=== PATIENT | male | born 1960 | race Caucasian/White ===

== ENCOUNTER 2021-09-26 00:52 | Inpatient (IN) | payer MEDICAID ==
[~2021-09-26] VITALS: Ht 170.2 cm; Wt 76.2 kg
--- NOTE | 2021-09-26 00:52 | NUR ---
from home for ble pain d/c [facility] 9dys ago for ble cellulitis, pt aaox4, denies sob, denies cp. nad noted. pending er provider ximena
[2021-09-26] MEDS ORDERED: VANCOMYCIN 1 GM in IV D5W 250 ML IV ONE (01:30)
[2021-09-26 01:42] LABS: BASOPHILS % (AUTO) 0.3 % (0.0-2.0); HEMATOCRIT 38 % (39-51); HEMOGLOBIN 12.3 g/dL (13.5-17.5); LYMPHOCYTES # (AUTO) 0.8 K/uL (0.8-4.8); LYMPHOCYTES % (AUTO) 8.6 % (20.0-44.0); MEAN CORPUSCULAR HGB CONC 32 g/dl (31.0-36.0); MEAN CORPUSCULAR VOLUME 79 fL (80-96); MONOCYTES # (AUTO) 0.9 K/uL (0.1-1.30); MONOCYTES % (AUTO) 9.7 % (2.0-12.0); NEUTROPHILS # (AUTO) 7.5 K/uL (1.8-8.9); NEUTROPHILS % (AUTO) 80.4 % (43.0-81.0); PLATELET COUNT (AUTO) 486 K/uL (150-450); RED BLOOD CELL COUNT(AUTO) 4.88 MIL/uL (4.5-6.0); WHITE BLOOD COUNT (AUTO) 9.4 K/uL (4.3-11.0)
[2021-09-26] MEDS ORDERED: VANCOMYCIN 1 GM VIAL ONE (02:12)
[2021-09-26 02:21] LABS: CALCIUM, SERUM 8.9 mg/dL (8.5-10.1); CREATININE 1.6 mg/dL (0.6-1.3); POTASSIUM 3.9 mmol/L (3.5-5.1)
[2021-09-26 02:36] LABS: ALBUMIN 2.8 g/dL (3.4-5.0); BILIRUBIN,DIRECT 0.1 mg/dL (0.0-0.2); BILIRUBIN,TOTAL 0.2 mg/dL (0.2-1.0); TOTAL PROTEIN, SERUM 7.5 g/dL (6.4-8.2)
--- NOTE | 2021-09-26 03:03 | NUR ---
FOLLOWED UP WITH STEVE REGARDING IMAGING
--- NOTE | 2021-09-26 04:10 | NUR ---
per pt's request, pt wants both legs wrapped. states "it hurts when it touches the bed" pt legs wrapped despite instructions to keep open to air.
--- NOTE | 2021-09-26 05:01 | NUR ---
epic panel paged
--- NOTE | 2021-09-26 05:33 | NUR ---
epic panel paged
[2021-09-26] MEDS ORDERED: ONDANSETRON HCL/PF 4 MG/2 ML VIAL IVP PRN (06:00)
[2021-09-26] MEDS ORDERED: ACETAMINOPHEN 325 MG TABLET PO PRN (06:00)
[2021-09-26] MEDS ORDERED: MAG HYDROX/AL HYDROX/SIMETH 30 ML UDC PO PRN (06:00)
[2021-09-26] MEDS ORDERED: Z GUARD REMEDY 4 OZ OINT TP PRN (06:00)
[2021-09-26] MEDS ORDERED: ZOLPIDEM TARTRATE 5 MG TABLET PO PRN (06:00)
[2021-09-26] MEDS ORDERED: MAGNESIUM HYDROXIDE 30 ML UDC PO PRN (06:00)
[2021-09-26] MEDS: CEFTRIAXONE 2 G in IV D5W 100 ML IV SCH (07:00)
--- NOTE | 2021-09-26 07:57 | NUR ---
REPORT GIVEN TO ADDISON RANDALL FOR SAVANNAH
[2021-09-26] MEDS ORDERED: ENOXAPARIN SODIUM 40 MG/0.4 ML DISP.SYRIN SQ ONE (07:59)
[2021-09-26] MEDS ORDERED: PANTOPRAZOLE 40 MG TABLET.DR PO ONE (07:59)
[2021-09-26] MEDS: ENOXAPARIN SODIUM 40 MG/0.4 ML DISP.SYRIN SQ SCH (08:02)
[2021-09-26] MEDS: PANTOPRAZOLE 40 MG TABLET.DR PO SCH (08:03)
--- NOTE | 2021-09-26 08:18 | NUR ---
RN NOTES RECEIVED PATIENT FROM EMERGENCY ROOM. TRANSFERRED VIA GURNEY, BEDBOUND. A/O X4, ABLE TO MAKE NEEDS KNOWN. ON RA WITH EVEN CHEST EXPANSION AND UNLABORED BREATHING. VSS, 97.9 TEMP, 110 HR, 135/69 BP, 18 RR, 100% O2 SAT. PATIENT VERBALIZED SOME PAIN IN LOWER LEGS BUT TOLERABLE AT THE MOMENT. SAFETY MEASURES IN PLACE. WILL CONTINUE TO MONITOR PATENT
--- NOTE | 2021-09-26 09:00 | NUR ---
RN NOTES PATIENT REFUSED TO HAVE DRESSING REMOVED FROM BILATERAL LOWER LEGS. PATIENT STATES "ITS TOO PAINFUL WHEN YOU TOUCH IT". REFUSED TO HAVE PHOTOS TAKEN OF LEGS.
--- NOTE | 2021-09-26 10:06 | NUR ---
WOUND CARE CONSULT: PT PRESENTS WITH VERY SWOLLEN, RED LOWER LEGS WITH SOME SEROUS DRAINAGE, PRESENT ON ADMISSION. PT REFUSED TO HAVE DRESSINGS REMOVED. LEGS ELEVATED. DR HINSON NOTIFIED OF DPM CONSULT REQUEST. IN AGREEMENT WITH PLAN OF CARE.
[2021-09-26] MEDS: VANCOMYCIN HCL 0.75 GM in IV D5W 250 ML IV SCH (14:18)
[2021-09-26 16:04] VITALS: BP 134/62
[2021-09-26] MEDS: VITAMINS A AND D 56.7 GM TUBE TP SCH (17:46)
--- NOTE | 2021-09-26 19:00 | NUR ---
RN CLOSING NOTES PATIENT A/O X4, ABLE TO MAKE NEEDS KNOWN. PATIENT WAS SEEN BY DR. HINSON. BILATERAL LOWER LEG DRESSINGS CHANGED C/D/I. STARTED ON ANTIBIOTIC THERAPY TODAY. SAFETY MEASURES IN PLACE. WILL ENDORSE TO SLEEVE PRESSER OPERATOR NURSE FOR SAVANNAH
--- NOTE | 2021-09-26 19:30 | NUR ---
RN OPENING NOTE PATIENT IN BED, EYES CLOSED, EASILY AWAKENED. PATIENT IS A/O X 3 ABLE TO MAKE NEEDS KNOWN. CURRENTLY ON RA, TOLERATING WELL. PATIENT HAS DRESSINGS PRESENT ON MARIANA LE S/P DEBRIDEMENT WITH DR. HINSON. PATIENT HAS ALAC 18 G PATENT AND IN TACT WITH NS @75 ML/HR ONGOING. PATIENT REPORTS PAIN ON BILATERAL LOWER EXT, WILL MANAGE PAIN APPROPRIATELY. SAFETY MEASURES IN PLACE: BED LOCKED AND IN LOWEST POSITION, CALL LIGHT WITHIN REACH, SIDE RAILS UP. WILL MONITOR PATIENT CLOSELY.
[2021-09-26 20:00] VITALS: BP 119/68
[2021-09-26] MEDS: IV NS 0.9% 1,000 ML IV PRN (20:40)
[2021-09-26] MEDS: HYDROCODONE/APAP 10/325MG TABLET PO PRN (20:54)
[2021-09-27] MEDS: VANCOMYCIN HCL 0.75 GM in IV D5W 250 ML IV SCH (01:52)
[2021-09-27] MEDS: CEFTRIAXONE 2 G in IV D5W 100 ML IV SCH (05:50)
[2021-09-27] MEDS: HYDROCODONE/APAP 10/325MG TABLET PO PRN ×2 (06:25→17:21)
[2021-09-27 06:40] LABS: BASOPHILS % (AUTO) 0.5 % (0.0-2.0); EOSINOPHILS % (AUTO) 2.6 % (0.0-6.0); HEMATOCRIT 30 % (39-51); HEMOGLOBIN 9.9 g/dL (13.5-17.5); LYMPHOCYTES # (AUTO) 0.7 K/uL (0.8-4.8); LYMPHOCYTES % (AUTO) 11.4 % (20.0-44.0); MEAN CORPUSCULAR HGB CONC 33 g/dl (31.0-36.0); MEAN CORPUSCULAR VOLUME 78 fL (80-96); MONOCYTES # (AUTO) 0.6 K/uL (0.1-1.30); MONOCYTES % (AUTO) 10.2 % (2.0-12.0); NEUTROPHILS # (AUTO) 4.7 K/uL (1.8-8.9); NEUTROPHILS % (AUTO) 75.3 % (43.0-81.0); PLATELET COUNT (AUTO) 404 K/uL (150-450); RED BLOOD CELL COUNT(AUTO) 3.87 MIL/uL (4.5-6.0); WHITE BLOOD COUNT (AUTO) 6.3 K/uL (4.3-11.0)
--- NOTE | 2021-09-27 06:59 | NUR ---
RN CLOSING NOTE PATIENT IN BED, AWAKE. PATIENT IS A/O X 3 ABLE TO MAKE NEEDS KNOWN. CURRENTLY ON RA, TOLERATING WELL. PATIENT HAS DRESSINGS PRESENT ON MARIANA LE S/P DEBRIDEMENT WITH DR. HINSON. PATIENT REFUSES TO HAVE DRESSING'S CHANGED EVEN WITH PAIN MEDICATION. PATIENT HAS A LAC 18 G PATENT AND IN TACT WITH NS @75 ML/HR ONGOING. PAIN MANAGED WITH NORCO 10-325. SAFETY MEASURES IN PLACE: BED LOCKED AND IN LOWEST POSITION, CALL LIGHT WITHIN REACH, SIDE RAILS UP. ALL NEEDS MET AND ATTENDED. ALL ORDERS CARRIED OUT. WILL ENDORSE TO DAY SHIFT NURSE FOR SAVANNAH.
[2021-09-27 07:00] LABS: ALBUMIN 1.8 g/dL (3.4-5.0); BILIRUBIN,TOTAL 0.1 mg/dL (0.2-1.0); CALCIUM, SERUM 7.9 mg/dL (8.5-10.1); CREATININE 0.8 mg/dL (0.6-1.3); MAGNESIUM 2.1 mg/dL (1.8-2.4); PHOSPHORUS 2.7 mg/dL (2.5-4.9); POTASSIUM 3.6 mmol/L (3.5-5.1); TOTAL PROTEIN, SERUM 5.4 g/dL (6.4-8.2)
[2021-09-27] MEDS: PANTOPRAZOLE 40 MG TABLET.DR PO SCH (09:36)
[2021-09-27] MEDS: VITAMINS A AND D 56.7 GM TUBE TP SCH ×2 (09:36→17:35)
[2021-09-27] MEDS: ENOXAPARIN SODIUM 40 MG/0.4 ML DISP.SYRIN SQ SCH (09:37)
[2021-09-27] MEDS: IV NS 0.9% 1,000 ML IV PRN (12:20)
[2021-09-27] MEDS: VANCOMYCIN 1 GM in IV D5W 250 ML IV SCH (15:37)
--- NOTE | 2021-09-27 18:00 | NUR ---
received pt. in am alert and oriented x3,requested pain med in am,then falls off to sleep.pain med given late afternoon with dressing chgs to arthur. legs.has mod amt of serous drainage from both legs.
--- NOTE | 2021-09-27 19:36 | NUR ---
RN OPENING NOTE PATIENT IN BED, AWAKE. PATIENT IS A/O X 3 ABLE TO MAKE NEEDS KNOWN. CURRENTLY ON RA, TOLERATING WELL. PATIENT HAS DRESSINGS PRESENT ON MARIANA LE DRESSING C/D/I. PATIENT HAS A LAC 18 G PATENT AND IN TACT WITH NS @75 ML/HR ONGOING. DENIES ANY PAIN AT THIS TIME. SAFETY MEASURES IN PLACE: BED LOCKED AND IN LOWEST POSITION, CALL LIGHT WITHIN REACH, SIDE RAILS UP. WILL ENDORSE TO DAY SHIFT NURSE FOR SAVANNAH.
[2021-09-27 20:00] VITALS: BP 122/74
[2021-09-28] MEDS: IV NS 0.9% 1,000 ML IV PRN ×2 (02:38→19:32)
[2021-09-28] MEDS: VANCOMYCIN 1 GM in IV D5W 250 ML IV SCH ×2 (02:39→15:23)
[2021-09-28] MEDS: HYDROCODONE/APAP 10/325MG TABLET PO PRN ×3 (05:14→23:21)
[2021-09-28] MEDS: CEFTRIAXONE 2 G in IV D5W 100 ML IV SCH (05:15)
--- NOTE | 2021-09-28 06:52 | NUR ---
RN CLOSING NOTE PATIENT IN BED, AWAKE. PATIENT IS A/O X 3 ABLE TO MAKE NEEDS KNOWN. CURRENTLY ON RA, TOLERATING WELL. PATIENT HAS DRESSINGS PRESENT ON MARIANA LE DRESSING, PATIENT DID NOT WANT DRESSINGS TOUCHED AGAIN TONIGHT. STATES THAT DRESSINGS WERE CHANGED AT 5 PM AND ONLY WANTS IT CHANGE EVERY 24 HRS. PHOTOS NOT TAKEN. PATIENT HAS A LAC 18 G PATENT AND IN TACT WITH NS @75 ML/HR ONGOING. DENIES ANY PAIN AT THIS TIME. SAFETY MEASURES IN PLACE: BED LOCKED AND IN LOWEST POSITION, CALL LIGHT WITHIN REACH, SIDE RAILS UP. ALL NEEDS MET AND ATTENDED. ALL ORDERS CARRIED OUT. WILL ENDORSE TO DAY SHIFT NURSE FOR SAVANNAH.
--- NOTE | 2021-09-28 08:12 | NUR ---
MS/RN OPENING NOTE RECEIVED PATIENT IN BED, AWAKE. PATIENT IS A/O X 3 ABLE TO MAKE NEEDS KNOWN. CURRENTLY ON RA, TOLERATING WELL. PATIENT HAS DRESSINGS PRESENT ON BLE, PATIENT HAS A LEFT AC #18G PATENT AND INTACT WITH NS @75 ML/HR ONGOING. DENIES ANY PAIN AT THIS TIME. SAFETY MEASURES IN PLACE: BED LOCKED AND IN LOWEST POSITION, CALL LIGHT WITHIN REACH, SIDE RAILS UP X2. WILL CONTINUE WITH THE PLAN OF CARE.
[2021-09-28 08:17] VITALS: BP 123/62
[2021-09-28 08:21] LABS: CALCIUM, SERUM 8.1 mg/dL (8.5-10.1); CREATININE 0.7 mg/dL (0.6-1.3); POTASSIUM 3.8 mmol/L (3.5-5.1)
[2021-09-28] MEDS: PANTOPRAZOLE 40 MG TABLET.DR PO SCH (10:12)
[2021-09-28] MEDS: VITAMINS A AND D 56.7 GM TUBE TP SCH ×2 (10:12→17:11)
[2021-09-28] MEDS: ENOXAPARIN SODIUM 40 MG/0.4 ML DISP.SYRIN SQ SCH (10:13)
--- NOTE | 2021-09-28 19:53 | NUR ---
MS RN OPENING NOTE PATIENT AWAKE IN BED, ALERT/ORIENTED X 4, PT ABLE TO MAKE NEEDS KNOWN. PATIENT STABLE ON RA, NO S/S OF DISTRESS OR SOB NOTED, BREATHING EVEN AND UNLABORED. IV ACCESS ON LEFT AC #18G INTACT AND INFUSING NS @ 75 ML/HR. DRESSING ON BLE CLEAN, DRY AND INTACT. PATIENT DENIES PAIN AT THIS TIME. SAFETY MEASURES IN PLACE: CALL LIGHT WITHIN REACH, SIDE RAILS UP X 2, BED LOCKED IN LOWEST POSITION, BED ALARM ON. WILL CONTINUE TO MONITOR PATIENT
[2021-09-28 20:20] VITALS: BP 123/76
[2021-09-29] MEDS: VANCOMYCIN 1 GM in IV D5W 250 ML IV SCH ×2 (03:10→15:44)
[2021-09-29] MEDS: CEFTRIAXONE 2 G in IV D5W 100 ML IV SCH (06:23)
[2021-09-29 06:52] LABS: CREATININE 0.8 mg/dL (0.6-1.3); POTASSIUM 3.9 mmol/L (3.5-5.1)
[2021-09-29 07:04] LABS: CALCIUM, SERUM 8.3 mg/dL (8.5-10.1)
--- NOTE | 2021-09-29 07:09 | NUR ---
MS RN CLOSING NOTE PATIENT SLEEPING IN BED, ALERT/ORIENTED X 4, PT ABLE TO MAKE NEEDS KNOWN. NO SIGNIFICANT CHANGES THROUGHOUT SHIFT. PATIENT STABLE ON RA, NO S/S OF DISTRESS OR SOB NOTED, BREATHING EVEN AND UNLABORED. IV ACCESS ON LEFT AC #18G INTACT AND INFUSING NS @ 75 ML/HR. DRESSING ON BLE CLEAN, DRY AND INTACT. PATIENT REFUSED PHOTOS OF BLE BECAUSE PER PATIENT DRESSING WAS CHANGED DURING DAY SHIFT AND HE DIDN'T WANT IT DONE AGAIN BECAUSE IT'S PAINFUL. MEDICATIONS GIVEN ORDERED, PT NEEDS MET THROUGHOUT SHIFT. SAFETY MEASURES IN PLACE: CALL LIGHT WITHIN REACH, SIDE RAILS UP X 2, BED LOCKED IN LOWEST POSITION, BED ALARM ON. WILL ENDORSE TO DAY SHIFT NURSE FOR CONTINUITY OF CARE
--- NOTE | 2021-09-29 07:46 | NUR ---
RN OPENING NOTES Patient seen comfortably lying in bed, no SOB, no apparent distress noted, breathing even and unlabored, denies any pain or discomfort at this time, no grimacing. Call light left within reach, safety precautions in place, brakes locked, side rails up X 2, will monitor closely for any changes.
[2021-09-29 08:00] VITALS: BP 133/84
[2021-09-29] MEDS: PANTOPRAZOLE 40 MG TABLET.DR PO SCH (08:21)
[2021-09-29] MEDS: HYDROCODONE/APAP 10/325MG TABLET PO PRN ×3 (08:22→22:14)
[2021-09-29] MEDS: ENOXAPARIN SODIUM 40 MG/0.4 ML DISP.SYRIN SQ SCH (08:23)
[2021-09-29] MEDS: VITAMINS A AND D 56.7 GM TUBE TP SCH ×2 (11:52→17:45)
[2021-09-29 14:07] LABS: *SPE A/G RATIO 0.7 (0.7-1.7); *SPE ALPHA-1-GLOBULIN 0.4 g/dL (0.0-0.4); *SPE ALPHA-2-GLOBULIN 0.9 g/dL (0.4-1.0); *SPE BETA GLOBULIN 0.7 g/dL (0.7-1.3); *SPE M-SPIKE Not Observed g/dL (Not Observed)
[2021-09-29 16:00] VITALS: BP 133/88
[2021-09-29] MEDS: IV NS 0.9% 1,000 ML IV PRN (17:50)
--- NOTE | 2021-09-29 19:36 | NUR ---
RN CLOSING NOTES Patient lying in bed, no shortness of breath, respirations even and unlabored, no dizziness, no palpitations, no chest pain. All due medications given per MD order and tolerated well. Pain medication given per MD order when non pharmacological measures ineffective. Patient has an order for IV fluids (NS at 75ml/hr) and IV ATB, tolerating well. IV peripheral line on right antecubital, patent and flushing well, covered with clean, intact and dry dressings and no swelling, no redness, no c/o pain or discomfort at site. Wound care treatment done as per MD order, photos taken and filed in chart. Kept clean and dry, call light left within reach, all needs attended, aspiration precautions observed at all times, kept head of bed elevated, safety precautions in place, frequent visual checks rendered, brakes locked, side rails up X 2, will endorse to next shift for continuity of care.
[2021-09-29 20:00] VITALS: BP 138/83
--- NOTE | 2021-09-29 22:14 | NUR ---
RN NOTE NORCO 10-325 GIVEN FOR PAIN ON BLE. WILL REASSESS PAIN AT A LATER TIME.
--- NOTE | 2021-09-30 00:56 | NUR ---
RN OPENING NOTE PATIENT IN BED, AWAKE. PATIENT IS A/O X 3 ABLE TO MAKE NEEDS KNOWN. CURRENTLY ON RA, TOLERATING WELL. PATIENT HAS DRESSINGS PRESENT ON MARIANA LE. CHANGED DRESSINGS AND TOOK PHOTOS OF WOUNDS WITH SANTOS JAIME. PATIENT VERBALIZES PAIN D/T DRESSING CHANGE. PATIENT HAS A RAC 20 G PATENT AND INTACT WITH NS @75 ML/HR ONGOING. SAFETY MEASURES IN PLACE: BED LOCKED AND IN LOWEST POSITION, CALL LIGHT WITHIN REACH, SIDE RAILS UP. WILL MONITOR PATIENT CLOSELY. Addendum: 09/30/21 at 0114 by ANANTH BROWN RN WRONG TIME 09/29/20211939
[2021-09-30] MEDS: VANCOMYCIN 1 GM in IV D5W 250 ML IV SCH ×2 (03:20→14:00)
[2021-09-30] MEDS: CEFTRIAXONE 2 G in IV D5W 100 ML IV SCH (06:23)
[2021-09-30] MEDS: IV NS 0.9% 1,000 ML IV PRN ×2 (06:26→20:13)
[2021-09-30 06:33] LABS: BASOPHILS # (AUTO) 0.1 K/uL (0.0-0.2); BASOPHILS % (AUTO) 1.1 % (0.0-2.0); EOSINOPHILS % (AUTO) 3.8 % (0.0-6.0); HEMATOCRIT 33 % (39-51); LYMPHOCYTES # (AUTO) 1.1 K/uL (0.8-4.8); LYMPHOCYTES % (AUTO) 18.3 % (20.0-44.0); MEAN CORPUSCULAR HGB CONC 33 g/dl (31.0-36.0); MEAN CORPUSCULAR VOLUME 77 fL (80-96); MONOCYTES # (AUTO) 0.6 K/uL (0.1-1.30); MONOCYTES % (AUTO) 10.7 % (2.0-12.0); NEUTROPHILS # (AUTO) 3.8 K/uL (1.8-8.9); NEUTROPHILS % (AUTO) 66.1 % (43.0-81.0); PLATELET COUNT (AUTO) 492 K/uL (150-450); RED BLOOD CELL COUNT(AUTO) 4.34 MIL/uL (4.5-6.0); WHITE BLOOD COUNT (AUTO) 5.8 K/uL (4.3-11.0)
[2021-09-30 06:51] LABS: CALCIUM, SERUM 8.7 mg/dL (8.5-10.1); CREATININE 0.8 mg/dL (0.6-1.3); MAGNESIUM 1.9 mg/dL (1.8-2.4); PHOSPHORUS 3.3 mg/dL (2.5-4.9); POTASSIUM 4.1 mmol/L (3.5-5.1)
--- NOTE | 2021-09-30 07:24 | NUR ---
MS RN OPENING NOTE RECEIVED PATIENT AWAKE IN BED, ALERT/ORIENTED X 4, PT ABLE TO MAKE NEEDS KNOWN. PATIENT STABLE ON RA, NO S/S OF DISTRESS OR SOB NOTED, BREATHING EVEN AND UNLABORED. IV ACCESS ON LEFT AC #18G INTACT AND INFUSING NS @ 75 ML/HR. DRESSING ON BLE CLEAN, DRY AND INTACT. PATIENT DENIES PAIN AT THIS TIME. SAFETY MEASURES IN PLACE: CALL LIGHT WITHIN REACH, SIDE RAILS UP X 2, BED LOCKED IN LOWEST POSITION, BED ALARM ON. WILL CONTINUE TO MONITOR
[2021-09-30 08:00] VITALS: BP 141/90
[2021-09-30] MEDS: PANTOPRAZOLE 40 MG TABLET.DR PO SCH (08:08)
[2021-09-30] MEDS: HYDROCODONE/APAP 10/325MG TABLET PO PRN ×3 (08:09→20:15)
[2021-09-30] MEDS: VITAMINS A AND D 56.7 GM TUBE TP SCH ×2 (08:13→16:01)
[2021-09-30] MEDS: ENOXAPARIN SODIUM 40 MG/0.4 ML DISP.SYRIN SQ SCH (08:13)
[2021-09-30 16:00] VITALS: BP 125/81
--- NOTE | 2021-09-30 18:26 | NUR ---
MS RN OPENING NOTE PATIENT AWAKE IN BED, ALERT/ORIENTED X 4, PT ABLE TO MAKE NEEDS KNOWN. PATIENT STABLE ON RA, NO S/S OF DISTRESS OR SOB NOTED, BREATHING EVEN AND UNLABORED. IV ACCESS ON LEFT AC #18G INTACT AND INFUSING NS @ 75 ML/HR. DRESSING ON BLE CLEAN, DRY AND INTACT. PATIENT DENIES PAIN AT THIS TIME, PATIENT COMPLAINED OF PAIN DURING SHIFT, PAIN MEDICATION GIVEN PER ORDER, VITALS MAINTAINED WNL. SAFETY MEASURES IN PLACE: CALL LIGHT WITHIN REACH, SIDE RAILS UP X 2, BED LOCKED IN LOWEST POSITION, BED ALARM ON. WILL ENDORSE TO ONCOMING SHIFT
--- NOTE | 2021-09-30 19:25 | NUR ---
RN OPENING NOTE PATIENT IN BED, SLEEPING, EASILY AWAKENED WITH VERBAL STIMULI. PATIENT IS A/O X 3 ABLE TO MAKE NEEDS KNOWN. CURRENTLY ON RA, TOLERATING WELL. PATIENT HAS DRESSINGS PRESENT ON MARIANA LE. PATIENT DOES NOT WANT TO CHANGE DRESSINGS AT THIS TIME. PATIENT HAS A RAC 20 G PATENT AND INTACT WITH NS @75 ML/HR ONGOING. SAFETY MEASURES IN PLACE: BED LOCKED AND IN LOWEST POSITION, CALL LIGHT WITHIN REACH, SIDE RAILS UP. WILL MONITOR PATIENT CLOSELY.
[2021-09-30 20:00] VITALS: BP 135/67
--- NOTE | 2021-09-30 20:15 | NUR ---
RN NOTE NORCO 10-325 GIVEN FOR BLE PAIN. WILL PAIN REASSESS AT A LATER TIME
[2021-10-01] MEDS: VANCOMYCIN 1 GM in IV D5W 250 ML IV SCH ×2 (03:51→14:09)
[2021-10-01] MEDS: HYDROCODONE/APAP 10/325MG TABLET PO PRN ×4 (03:51→20:26)
--- NOTE | 2021-10-01 03:51 | NUR ---
NORCO 10-325 GIVEN FOR BLE PAIN. WILL PAIN REASSESS AT A LATER TIME
[2021-10-01] MEDS: CEFTRIAXONE 2 G in IV D5W 100 ML IV SCH (05:59)
[2021-10-01] MEDS: IV NS 0.9% 1,000 ML IV PRN ×2 (06:33→20:38)
[2021-10-01 06:54] LABS: CALCIUM, SERUM 8.9 mg/dL (8.5-10.1); CREATININE 0.8 mg/dL (0.6-1.3); MAGNESIUM 2.1 mg/dL (1.8-2.4); PHOSPHORUS 3.5 mg/dL (2.5-4.9); POTASSIUM 4.2 mmol/L (3.5-5.1)
--- NOTE | 2021-10-01 07:19 | NUR ---
MS RN OPENING NOTE RECEIVED PATIENT AWAKE IN BED, ALERT/ORIENTED X 4, PT ABLE TO MAKE NEEDS KNOWN. PATIENT STABLE ON RA, NO S/S OF DISTRESS OR SOB NOTED, BREATHING EVEN AND UNLABORED. IV ACCESS ON LEFT AC #18G INTACT AND INFUSING NS @ 75 ML/HR. DRESSING ON BLE CLEAN, DRY AND INTACT. PATIENT REFUSED CASE IN AM AND PM SHIFT YESTERDAY, OFFERED AGAIN, WILL CONTINUE TO OFFER. PATIENT DENIES PAIN AT THIS TIME. SAFETY MEASURES IN PLACE: CALL LIGHT WITHIN REACH, SIDE RAILS UP X 2, BED LOCKED IN LOWEST POSITION, BED ALARM ON. WILL CONTINUE TO MONITOR
[2021-10-01] MEDS: PANTOPRAZOLE 40 MG TABLET.DR PO SCH (08:08)
[2021-10-01] MEDS: ENOXAPARIN SODIUM 40 MG/0.4 ML DISP.SYRIN SQ SCH (08:10)
[2021-10-01] MEDS: VITAMINS A AND D 56.7 GM TUBE TP SCH ×2 (08:11→16:01)
[2021-10-01 08:52] LABS: BASOPHILS # (AUTO) 0.1 K/uL (0.0-0.2); HEMATOCRIT 35 % (39-51); HEMOGLOBIN 11.3 g/dL (13.5-17.5); LYMPHOCYTES # (AUTO) 1.1 K/uL (0.8-4.8); LYMPHOCYTES % (AUTO) 20.6 % (20.0-44.0); MEAN CORPUSCULAR HGB CONC 32 g/dl (31.0-36.0); MEAN CORPUSCULAR VOLUME 77 fL (80-96); MONOCYTES # (AUTO) 0.6 K/uL (0.1-1.30); MONOCYTES % (AUTO) 11.2 % (2.0-12.0); NEUTROPHILS # (AUTO) 3.5 K/uL (1.8-8.9); NEUTROPHILS % (AUTO) 63.2 % (43.0-81.0); PLATELET COUNT (AUTO) 519 K/uL (150-450); RED BLOOD CELL COUNT(AUTO) 4.56 MIL/uL (4.5-6.0); WHITE BLOOD COUNT (AUTO) 5.6 K/uL (4.3-11.0)
--- NOTE | 2021-10-01 19:30 | NUR ---
MS RN OPENING NOTES RECEIVED PATIENT LYING IN BED ASLEEP. EASY TO AROUSE. A/O X4. BREATHING EVEN AND UNLABORED. STABLE IN ROOM AIR. HAS RIGHT AC IV ACCESS #20G WITH NS RUNNING AT 75 ML/HR. NO S/S OF INFILTRATION NOTED. BLE WOUND DRESSING DRY AND INTACT. SAFETY PRECAUTIONS IN PLACED. WILL CONTINUE PLAN OF CARE.
[2021-10-01 20:00] VITALS: BP 139/85
[2021-10-02] MEDS: VANCOMYCIN 1 GM in IV D5W 250 ML IV SCH ×2 (02:43→17:01)
[2021-10-02] MEDS: CEFTRIAXONE 2 G in IV D5W 100 ML IV SCH (05:40)
[2021-10-02 06:19] LABS: BASOPHILS # (AUTO) 0.1 K/uL (0.0-0.2); BASOPHILS % (AUTO) 0.9 % (0.0-2.0); HEMATOCRIT 35 % (39-51); HEMOGLOBIN 11.6 g/dL (13.5-17.5); LYMPHOCYTES # (AUTO) 1.3 K/uL (0.8-4.8); LYMPHOCYTES % (AUTO) 21.6 % (20.0-44.0); MEAN CORPUSCULAR HGB CONC 33 g/dl (31.0-36.0); MEAN CORPUSCULAR VOLUME 77 fL (80-96); MONOCYTES # (AUTO) 0.7 K/uL (0.1-1.30); MONOCYTES % (AUTO) 11.9 % (2.0-12.0); NEUTROPHILS # (AUTO) 3.7 K/uL (1.8-8.9); NEUTROPHILS % (AUTO) 61.6 % (43.0-81.0); PLATELET COUNT (AUTO) 471 K/uL (150-450)
[2021-10-02 07:01] LABS: CALCIUM, SERUM 8.4 mg/dL (8.5-10.1); CREATININE 0.9 mg/dL (0.6-1.3); MAGNESIUM 1.9 mg/dL (1.8-2.4); PHOSPHORUS 3.4 mg/dL (2.5-4.9); POTASSIUM 4.3 mmol/L (3.5-5.1)
--- NOTE | 2021-10-02 07:11 | NUR ---
MS RN CLOSING NOTES PATIENT LYING IN BED ASLEEP. EASY TO AROUSE. A/O X4. STABLE IN ROOM AIR. NOT IN APPARENT DISTRESS. HAS RIGHT AC IV ACCESS #20G WITH NS RUNNING AT 75 ML/HR. INTACT, PATENT AND FLUSHING. OFFERED TO CHANGE BLE WOUND DRESSING, REFUSED. EXPLAINED RISKS AND BENEFITS. ALL NEEDS ATTENDED. KEPT DRY AND COMFORTABLE. SAFETY PRECAUTIONS IN PLACED: BED LOW AND LOCKED, BED ALARM ON, SIDE RAILS UP X2, CALL LIGHT WITHIN REACH.
[2021-10-02 08:00] VITALS: BP 144/91
--- NOTE | 2021-10-02 08:00 | NUR ---
ms rn received on bed,awake,alert,oriented x4,not in any form of distress, respirations even and unlabored,no sob noted, lungs are clear,abdomen soft,positive bowel sounds,noted to have bilateral lower legs cellulitis w/ dressing intact,denies pain at this time.
[2021-10-02] MEDS: VITAMINS A AND D 56.7 GM TUBE TP SCH ×3 (09:00→17:10)
--- NOTE | 2021-10-02 10:00 | NUR ---
ms barth breakfast served,due meds given, tolerated well.
[2021-10-02] MEDS: PANTOPRAZOLE 40 MG TABLET.DR PO SCH (10:21)
[2021-10-02] MEDS: ENOXAPARIN SODIUM 40 MG/0.4 ML DISP.SYRIN SQ SCH (10:28)
[2021-10-02] MEDS: HYDROCODONE/APAP 10/325MG TABLET PO PRN ×2 (10:30→17:44)
--- NOTE | 2021-10-02 11:00 | NUR ---
ms rn pt wants to change dressing later today.
--- NOTE | 2021-10-02 13:00 | NUR ---
ms rn nursery was seen br .
[2021-10-02 16:00] VITALS: BP 146/81
--- NOTE | 2021-10-02 18:00 | NUR ---
ms rn patient refused to change dressing,new iv inserted at right forearm, 22g, with good venous output.
--- NOTE | 2021-10-02 19:00 | NUR ---
ms rn on bed, all needs attended.
--- NOTE | 2021-10-02 19:30 | NUR ---
MS RN NOTES RECEIVED LAYING COMFORTABLY ON BED,A/O X4,DENIES DISCOMFORTS,NOTED BOTH LEGS CELLULITIS WRAPPED WITH KERLIX,ELEVATED ON PILLOWS,IVF NOT HOOKED UP,RESTARTED AT 75ML/HR RATE ON RIGHT AC VIA IV PUMP.DOCUMENTED PAIN ON BLE IS LESSER AFTER MEDICATED AT 1744.SAYS IM HUNGRY,PROVIDED WITH APPLE JUICE AND EGG SANDWICH.WILL CONTINUE TO MONITOR STATUS.
[2021-10-02 20:00] VITALS: BP 129/74
[2021-10-02] MEDS: IV NS 0.9% 1,000 ML IV PRN (22:33)
[2021-10-03] MEDS: VANCOMYCIN 1 GM in IV D5W 250 ML IV SCH (03:00)
--- NOTE | 2021-10-03 03:00 | NUR ---
MS RN NOTES DUE VANCOMYCIN 1GM IV HUNG
--- NOTE | 2021-10-03 05:45 | NUR ---
MS RN NOTES DUE ROCEPHIN 2GM IV HUNG
[2021-10-03] MEDS: CEFTRIAXONE 2 G in IV D5W 100 ML IV SCH (05:47)
--- NOTE | 2021-10-03 06:31 | NUR ---
MS RN NOTES FAIRLY RESTED AT NIGHT,SLEPT WELL,NO COMPLAINTS OF PAIN,BOTH LEGS DRESSING INTACT AND DRY,DUE IV ANTIBIOTICS INFUSED,NO ADVERSE SIDE EFFECT NOTED,IVF INFUSING WELL ON RIGHT AC SALINE LOCK VIA IV PUMP,NO INFILTRATION ON SITE.IN NO ACUTE DISTRESS.
--- NOTE | 2021-10-03 07:15 | NUR ---
ms rn received on bed, awake,alert,oriented x4,not in any form of distress, respirations even and unlabored,no sob noted, lungs are clear,abdomen soft,positive bowel sounds,denies pain at this time,all needs attended,
[2021-10-03 08:00] VITALS: BP 112/77
--- NOTE | 2021-10-03 08:36 | NUR ---
ms barth breakfast served,due meds given,tolerated well.
[2021-10-03] MEDS: ENOXAPARIN SODIUM 40 MG/0.4 ML DISP.SYRIN SQ SCH (08:57)
[2021-10-03] MEDS: PANTOPRAZOLE 40 MG TABLET.DR PO SCH (08:58)
[2021-10-03] MEDS: HYDROCODONE/APAP 10/325MG TABLET PO PRN ×2 (09:34→16:24)
[2021-10-03] MEDS: VITAMINS A AND D 56.7 GM TUBE TP SCH ×2 (09:36→17:51)
--- NOTE | 2021-10-03 15:00 | NUR ---
ms rn on bed, sleeping well.
[2021-10-03 16:00] VITALS: BP 124/77
[2021-10-03] MEDS: VANCOMYCIN HCL 0.75 GM in IV D5W 250 ML IV SCH (17:51)
--- NOTE | 2021-10-03 18:09 | NUR ---
ms rn on bed, no distress noted,all needs attended, still refusing again to change dressing to bilateral legs.
--- NOTE | 2021-10-03 19:20 | NUR ---
MS RN OPENING NOTES RECEIVED PATIENT ON BED; AWAKE, ALERT AND ORIENTED X2. BREATHING IS EVEN AND NONLABORED. NO SOB NOTED. IN NO ACUTE DISTRESS NOTED. DENIES ANY PAIN OR DISCOMFORT OF THIS TIME. ON ROOM AIR; TOLERATING WELL. WITH IV ACCESS ON RIGHT HAND G#20 INFUSING WITH NS 1L REGULATED AT 75ML/HR; PATENT AND INTACT. ABLE TO MAKE NEEDS KNOWN. SAFETY MEASURES IMPLEMENTED: CALL BENNETT AND TABLE WITHIN EASY REACH, SIDE RAILS UP X 2, BED IN LOWEST LOCKED POSITION. WILL CONTINUE TO MONITOR
[2021-10-03 20:00] VITALS: BP 124/71
[2021-10-03] MEDS: IV NS 0.9% 1,000 ML IV PRN (22:43)
--- NOTE | 2021-10-04 03:30 | NUR ---
MS RN NOTES DRESSING DONE ON BILATERAL LOWER EXTREMITIES.
[2021-10-04] MEDS: HYDROCODONE/APAP 10/325MG TABLET PO PRN ×3 (04:22→18:38)
--- NOTE | 2021-10-04 04:23 | NUR ---
MS RN NOTES COMPLAINED OF RIGHT HIP PAIN WITH A SCALE OF 7; PRN NORCO 325 MG 1 TABLET GIVEN PO ORDERED; WILL CONTINUE TO MONITOR
[2021-10-04] MEDS: VANCOMYCIN HCL 0.75 GM in IV D5W 250 ML IV SCH ×2 (05:04→17:56)
[2021-10-04] MEDS: CEFTRIAXONE 2 G in IV D5W 100 ML IV SCH (06:25)
[2021-10-04 07:10] LABS: CALCIUM, SERUM 8.6 mg/dL (8.5-10.1); CREATININE 0.8 mg/dL (0.6-1.3)
--- NOTE | 2021-10-04 07:10 | NUR ---
MS RN CLOSING NOTES PATIENT IS AWAKE, ALERT AND ORIENTED X 4. BREATHING IS EVEN AND UNLABORED. NO SOB NOTED. IN NO ACUTE DISTRESS NOTED. DENIES ANY PAIN OR DISCOMFORT. SAFETY MEASURES IN PLACED. NEEDS ATTENDED TO. ENDORSED TO MORNING SHIFT FOR SAVANNAH.
--- NOTE | 2021-10-04 07:20 | NUR ---
ms rn received on bed, awake,alert,oriented x4,not in any form of distress, respirations even and unlabored, no sob noted, bilateral lower extremity cellulitis w/ dressing, dry and intact, no drainage noted,denies pain at this time, all needs attended.
[2021-10-04] MEDS: PANTOPRAZOLE 40 MG TABLET.DR PO SCH (07:37)
[2021-10-04 08:00] VITALS: BP 139/79
[2021-10-04] MEDS: VITAMINS A AND D 56.7 GM TUBE TP SCH ×2 (09:00→18:23)
--- NOTE | 2021-10-04 09:36 | NUR ---
ms barth breakfast served,due meds given,tolerated well.
[2021-10-04] MEDS: ENOXAPARIN SODIUM 40 MG/0.4 ML DISP.SYRIN SQ SCH (10:47)
--- NOTE | 2021-10-04 12:00 | NUR ---
ms tab was seen by md vela/ new orders made and carried out.
[2021-10-04 16:00] VITALS: BP 125/72
[2021-10-04] MEDS: IV NS 0.9% 1,000 ML IV PRN (17:56)
--- NOTE | 2021-10-04 18:40 | NUR ---
ms rn on bed, all needs attended.
--- NOTE | 2021-10-04 19:25 | NUR ---
MS RN OPENING NOTES RECEIVED PATIENT LAYING AWAKE IN BED. A/O X4. PATIENT WITH REGULAR AND UNLABORED BREATHING ON ROOM AIR, TOLERATED WELL. NO SIGNS AND SYMPTOMS OF DISTRESS NOTED AT THIS TIME. NO COMPLAINS OF PAIN OR DISCOMFORT AT THIS TIME. IV ACCESS RAC G #20 INFUSING NS @ 75 ML/HR. IV ACCESS PATENT AND INTACT. SAFETY PRECAUTIONS ENFORCED WITH BED LOCKED AND AT LOWEST POSITION. SIDERAILS UP X2. CALL LIGHT WITHIN REACH AT ALL TIMES. WILL CONTINUE TO MONITOR PATIENT.
[2021-10-04 20:00] VITALS: BP 112/65
[2021-10-05] MEDS: HYDROCODONE/APAP 10/325MG TABLET PO PRN ×4 (00:42→21:36)
[2021-10-05 04:11] LABS: BASOPHILS # (AUTO) 0.1 K/uL (0.0-0.2); BASOPHILS % (AUTO) 1.3 % (0.0-2.0); EOSINOPHILS % (AUTO) 4.1 % (0.0-6.0); HEMATOCRIT 37 % (39-51); HEMOGLOBIN 11.8 g/dL (13.5-17.5); LYMPHOCYTES # (AUTO) 1.5 K/uL (0.8-4.8); LYMPHOCYTES % (AUTO) 27.5 % (20.0-44.0); MEAN CORPUSCULAR HGB CONC 32 g/dl (31.0-36.0); MEAN CORPUSCULAR VOLUME 78 fL (80-96); MONOCYTES # (AUTO) 0.7 K/uL (0.1-1.30); NEUTROPHILS % (AUTO) 55.1 % (43.0-81.0); PLATELET COUNT (AUTO) 425 K/uL (150-450); RED BLOOD CELL COUNT(AUTO) 4.72 MIL/uL (4.5-6.0); WHITE BLOOD COUNT (AUTO) 5.5 K/uL (4.3-11.0)
[2021-10-05 04:27] LABS: CALCIUM, SERUM 8.4 mg/dL (8.5-10.1); CREATININE 0.9 mg/dL (0.6-1.3); POTASSIUM 4.2 mmol/L (3.5-5.1)
[2021-10-05] MEDS: VANCOMYCIN HCL 0.75 GM in IV D5W 250 ML IV SCH (04:39)
[2021-10-05] MEDS: CEFTRIAXONE 2 G in IV D5W 100 ML IV SCH (05:51)
--- NOTE | 2021-10-05 06:36 | NUR ---
MS RN CLOSING NOTES PATIENT STILL LAYING AWAKE IN BED. A/O X4. PATIENT WITH REGULAR AND UNLABORED BREATHING ON ROOM AIR, TOLERATED WELL. NO SIGNS AND SYMPTOMS OF DISTRESS NOTED AT THIS TIME. NO COMPLAINS OF PAIN OR DISCOMFORT AT THIS TIME. IV ACCESS RAC G #20 INFUSING NS @ 75 ML/HR. IV ACCESS PATENT AND INTACT. SAFETY PRECAUTIONS ENFORCED WITH BED LOCKED AND AT LOWEST POSITION. SIDERAILS UP X2. CALL LIGHT WITHIN REACH AT ALL TIMES. WILL ENDORSE CONTINUITY OF CARE TO DAY SHIFT NURSE.
--- NOTE | 2021-10-05 07:10 | NUR ---
MS RN OPENING NOTES RECEIVED PATIENT ASLEEP IN BED. EASILY AWAKEN UPON CALL. A/O X4. ON RA. TOLERATING WELL. BREATHING EVEN AND UNLABORED. NOT ANY SIGN OF RESPIRATORY DISTRESS NOTED AT THIS TIME. DENIES PAIN OR DISCOMFORT AT THIS TIME. IV ACCESS RAC G #20 INTACT AND PATENT WITH NS INFUSING @ 75 ML/HR. SAFETY MEASURES IN PLACE: BED AT LOWEST AND LOCKED POSITION. SIDE RAILS UP X2. CALL LIGHT WITHIN REACH AT ALL TIMES. WILL CONTINUE TO MONITOR PATIENT.
[2021-10-05] MEDS: PANTOPRAZOLE 40 MG TABLET.DR PO SCH (07:40)
--- NOTE | 2021-10-05 07:42 | NUR ---
RN NOTES PT COMPLAINED OF THROBBING RIGHT HIP PAIN, WITH PAIN SCALE LEVEL OF 7/10. NORCO 10/325, 1 TAB GIVEN ORDERED PRN. WILL MONITOR AND REASSESS PT.
[2021-10-05 08:00] VITALS: BP 112/63
[2021-10-05] MEDS: ENOXAPARIN SODIUM 40 MG/0.4 ML DISP.SYRIN SQ SCH (08:08)
[2021-10-05] MEDS: VITAMINS A AND D 56.7 GM TUBE TP SCH ×2 (08:15→16:04)
[2021-10-05] MEDS: IV NS 0.9% 1,000 ML IV PRN (14:39)
--- NOTE | 2021-10-05 14:50 | NUR ---
RN NOTES PT COMPLAINED OF THROBBING RIGHT HIP PAIN, WITH PAIN SCALE LEVEL OF 7/10. NORCO 10325 1 TAB GIVEN ORDERED PRN AT 1449. WILL MONITOR AND REASSESS PT.
[2021-10-05 16:00] VITALS: BP 139/86
--- NOTE | 2021-10-05 18:38 | NUR ---
MS RN CLOSING NOTES PATIENT AWAKE IN BED WATCHING TV. A/O X4. ON RA. TOLERATING WELL. BREATHING EVEN AND UNLABORED. NOT ANY SIGN OF RESPIRATORY DISTRESS NOTED AT THIS TIME. DENIES PAIN OR DISCOMFORT AT THIS TIME. IV ACCESS RAC G #20 INTACT AND PATENT WITH NS INFUSING @ 75 ML/HR. ALL NEEDS AND CARE PROVIDED TO PT. ENCOURAGED PT TO TURN AND REPOSITION Q2HRS AND NEEDED. ALSO ENCOURAGED PT TO USE THE CALL LIGHT IF ASSISTANCE IS NEEDED. SAFETY MEASURES IN PLACE: BED AT LOWEST AND LOCKED POSITION. SIDE RAILS UP X2. CALL LIGHT WITHIN REACH AT ALL TIMES. WILL ENDORSED TO AUDIO PRODUCTION ENGINEER NURSE.
[2021-10-05 20:00] VITALS: BP 109/72
[2021-10-05 20:10] VITALS: BP 109/72
--- NOTE | 2021-10-05 20:21 | NUR ---
MS RN NOTES: RECEIVED PATIENT LAYING IN BED. A/O X4. NO S/S OF DISTRESS. RESPIRATION EVEN AND UNLABORED WITH EQUAL RISE AND FALL OF THE CHEST, ON ROOM AIR. IV ACCESS G#20 INTACT ON NS @ 75ML/HR. WILL CONTINUE TO MONITOR.
--- NOTE | 2021-10-05 21:38 | NUR ---
MS RN NOTES: PATIENT ASKED FOR NORCO D/T RIGHT HIP PAIN. RATES PAIN LEVEL 8/10. NORCO 10/325 1TAB GIVEN PO AT 2136. WILL CONTINUE TO MONITOR.
--- NOTE | 2021-10-06 05:38 | NUR ---
MS RN NOTES: PATIENT REFUSED DAILY WOUND DRESSING AND WEEKLY SKIN ASSESSMENT. PER PATIENT "IT'S NOT BEEN 24HRS SINCE IT WAS CHANGED, I'M REFUSING". TEACHING PROVIDED ON THE IMPORTANCE OF COMPLYING WITH TREATMENT REGIMEN. WILL ENDORSE TO AM SHIFT.
[2021-10-06] MEDS: CEFTRIAXONE 2 G in IV D5W 100 ML IV SCH (05:55)
[2021-10-06 07:05] LABS: CALCIUM, SERUM 8.8 mg/dL (8.5-10.1); CREATININE 0.9 mg/dL (0.6-1.3); POTASSIUM 4.3 mmol/L (3.5-5.1)
--- NOTE | 2021-10-06 07:05 | NUR ---
GPS RN CLOSING NOTES: PATIENT IS LAYING IN BED ASLEEP. NO S/S OF DISTRESS NOTED. RESPIRATION EVEN AND UNLABORED WITH EQUAL RISE AND FALL OF THE CHEST, ON ROOM AIR. IV ACCESS RAC G#20 INTACT AND PATENT INFUSING NS @ 75ML/HR. ALL PATIENT CARE NEEDS HAVE BEEN MET ANTICIPATED. BED IN LOW LOCKED POSITION, SIDE RAILS UP X2 FOR SAFETY. CALL BENNETT WITHIN REACH. ENDORSING TO AM SHIFT.
--- NOTE | 2021-10-06 07:57 | NUR ---
RN OPENING NOTE PATIENT IN BED RESTING, AWAKE, A/O X4. NO S/S OF PAIN NOTED AT THIS TIME. ON ROOM AIR, NO DISTRESS OR SHORTNESS OF BREATH NOTED. IV ACCESS RAC #20G, INTACT, PATENT AND FLUSHING WELL. FALL AND SAFETY MEASURES IN PLACE, BED ALARM ON, BED IN LOW AND LOCK POSITION, CALL LIGHT AND TABLE WITHIN EASY REACH, SIDE RAILS UP X2. WILL CONTINUE TO MONITOR
[2021-10-06] MEDS: PANTOPRAZOLE 40 MG TABLET.DR PO SCH (08:51)
[2021-10-06] MEDS: ENOXAPARIN SODIUM 40 MG/0.4 ML DISP.SYRIN SQ SCH (08:52)
[2021-10-06] MEDS: VITAMINS A AND D 56.7 GM TUBE TP SCH ×2 (08:55→17:17)
[2021-10-06] MEDS: HYDROCODONE/APAP 10/325MG TABLET PO PRN ×2 (10:26→18:28)
[2021-10-06] MEDS: IV NS 0.9% 1,000 ML IV PRN (16:05)
--- NOTE | 2021-10-06 18:49 | NUR ---
RN CLOSING NOTE PATIENT IN BED RESTING, AWAKE, A/O X4. NO S/S OF PAIN NOTED AT THIS TIME. ON ROOM AIR, NO DISTRESS OR SHORTNESS OF BREATH NOTED. IV ACCESS RAC #20G, NS @ 75 ML/HR, INTACT, PATENT AND FLUSHING WELL. ALL SCHEDULE MEDICATIONS ADMINISTERED. WOUND CARE IMPLEMENTED. FALL AND SAFETY MEASURES IN PLACE, BED ALARM ON, BED IN LOW AND LOCK POSITION, CALL LIGHT AND TABLE WITHIN EASY REACH, SIDE RAILS UP X2. WILL ENDORSE TO SUEDE BRUSHER.
--- NOTE | 2021-10-06 19:18 | NUR ---
RN OPENING NOTE PATIENT IN BED RESTING, AWAKE, A/O X4. NO S/S OF PAIN NOTED AT THIS TIME. ON ROOM AIR, NO DISTRESS OR SHORTNESS OF BREATH NOTED. IV ACCESS RAC #20G, NS @ 75 ML/HR, INTACT, PATENT AND FLUSHING WELL. FALL AND SAFETY MEASURES IN PLACE, BED ALARM ON, BED IN LOW AND LOCK POSITION, CALL LIGHT AND TABLE WITHIN EASY REACH, SIDE RAILS UP X2. WILL CONTINUE TO MONITOR.
[2021-10-06 20:00] VITALS: BP 123/76
[2021-10-06 20:25] VITALS: BP 123/76
[2021-10-07] MEDS: CEFTRIAXONE 2 G in IV D5W 100 ML IV SCH ×2 (05:13→05:37)
--- NOTE | 2021-10-07 05:30 | NUR ---
MS RN NOTES PT REFUSING IV ANTIBIOTIC AT THIS TIME. PT STATED " CANT YOU JUST GIVE IT A REST WITH THE IV STUFF FOR NOW" EXPLAINED TO PT THAT THE ANTIBIOTIC IS IMPORTANT AND ONCE MIXED NEEDS TO BE ADMINISTERED WITHIN A CERTAIN TIME FRAME PT STATED " I UNDERSTAND WHAT YOUR SAYING BUT I DON'T WANT IT RIGHT NOW THEY CAN JUST GIVE ME A NEW BAG AFTER BREAKFAST ONCE IM AWAKE I JUST WANT TO SLEEP AND BE LEFT ALONE" REPEATED AGAIN TO PT THAT WE HAVE ALREADY STARTED TO ADMINISTER ANTIBIOTIC AND IT WOULD ONLY TAKE ABOUT 25 MINUTES TO INFUSED PT STATED " I UNDERSTAND WHAT YOUR SAYING BUT I DON'T WANT IT RIGHT NOW NOW CAN YOU TURN THE LIGHT OFF SO I CAN SLEEP." RISK AND BENEFITS EXPLAINED X3 REFUSED X3.WILL CONTINUE TO MONITOR. PT.
[2021-10-07 06:16] LABS: CREATININE 0.9 mg/dL (0.6-1.3); POTASSIUM 4.4 mmol/L (3.5-5.1)
--- NOTE | 2021-10-07 06:37 | NUR ---
RN CLOSING NOTE PATIENT IN BED RESTING, AWAKE, A/O X4. NO S/S OF PAIN NOTED AT THIS TIME. ON ROOM AIR, NO DISTRESS OR SHORTNESS OF BREATH NOTED. IV ACCESS RAC #20G, INTACT, PATENT AND FLUSHING WELL. FALL AND SAFETY MEASURES IN PLACE, BED ALARM ON, BED IN LOW AND LOCK POSITION, CALL LIGHT AND TABLE WITHIN EASY REACH, SIDE RAILS UP X2. WILL ENDORSE CARE TO DAY SHIFT NURSE.
[2021-10-07 06:43] LABS: BASOPHILS % (AUTO) 0.8 % (0.0-2.0); HEMATOCRIT 38 % (39-51); HEMOGLOBIN 12.2 g/dL (13.5-17.5); LYMPHOCYTES # (AUTO) 1.4 K/uL (0.8-4.8); LYMPHOCYTES % (AUTO) 27.1 % (20.0-44.0); MEAN CORPUSCULAR HGB CONC 33 g/dl (31.0-36.0); MEAN CORPUSCULAR VOLUME 78 fL (80-96); MONOCYTES # (AUTO) 0.6 K/uL (0.1-1.30); MONOCYTES % (AUTO) 11.7 % (2.0-12.0); NEUTROPHILS % (AUTO) 56.4 % (43.0-81.0); PLATELET COUNT (AUTO) 417 K/uL (150-450); RED BLOOD CELL COUNT(AUTO) 4.78 MIL/uL (4.5-6.0); WHITE BLOOD COUNT (AUTO) 5.3 K/uL (4.3-11.0)
[2021-10-07 08:11] VITALS: BP 134/78
[2021-10-07] MEDS: PANTOPRAZOLE 40 MG TABLET.DR PO SCH (08:28)
[2021-10-07] MEDS: VITAMINS A AND D 56.7 GM TUBE TP SCH ×2 (08:29→17:00)
[2021-10-07] MEDS: ENOXAPARIN SODIUM 40 MG/0.4 ML DISP.SYRIN SQ SCH (08:29)
[2021-10-07] MEDS ORDERED: DOXY-226 PO (10:09)
[2021-10-07] MEDS: HYDROCODONE/APAP 10/325MG TABLET PO PRN (14:35)
[2021-10-07 15:35] VITALS: BP 112/66
--- NOTE | 2021-10-07 18:26 | NUR ---
SALES TEAM RECRUITER NOTE PATIENT DISCHARGE IN MEDICAL STABLE CONDITION, A/O X4. V/S TAKEN, STABLE AND RECORDED. NO IV ACCESS. PATIENT REFUSED SKIN ASSESSMENT AND PICTURES, PATIENT DID NOT WANT TO REMOVED WOUND DRESSINGS TO TAKE PICTURES. OFFERED PATIENT WOUND CARE X3 BEFORE DISCHARGE AT DEFERENT TIMES BUT REFUSED EVERY TIME. WOUND CARE SUPPLY WAS PROVIDED X1 DAY. HOME HEALTH FIRST VISIT ON 10/08/21 OR 10/09/21. PATIENT WAS PROVIDE WITH WOUND CLINIC INFORMATION BEFORE DISCHARGE. NAME ARM BAND REMOVED. ALL BELONGINGS CHECKED AND SIGNED. HEALTH TEACHING AND DISCHARGE INSTRUCTIONS GIVEN TO PATIENT, VERBALIZED UNDERSTANDING. PATIENT LEFT UNIT VIA GURNEY WITH NO SIGNS OF DISTRESS, ACCOMPANIED BY PARAMEDICS. PATIENT WENT HOME WITH HOME-HEALTH SERVICES. CHARGE NURSE AWARE OF DISCHARGE.
== END 2021-10-07 18:19 | disposition home health service (06) | DRG 383 ==
LOC: ER 00:59 → TRANSITION 07:45 → MED 08:02
PROVIDERS: ADMIT Nurse Practitioner Acute Care; ATTEND Registered Nurse
PROC: 0JBP0ZZ Excision of Left Lower Leg Subcutaneous Tissue and Fascia, Open Approach (ICD-10-PCS; principal; 2021-09-26)
PROC: 0JBN0ZZ Excision of Right Lower Leg Subcutaneous Tissue and Fascia, Open Approach (ICD-10-PCS; 2021-09-26)
DX: L03.115 Cellulitis of right lower limb (principal); N17.0 Acute kidney failure with tubular necrosis; E43 Unspecified severe protein-calorie malnutrition; E87.1 Hypo-osmolality and hyponatremia; I87.313 Chronic venous hypertension (idiopathic) with ulcer of bilateral lower extremity; E88.09 Other disorders of plasma-protein metabolism, not elsewhere classified; D63.8 Anemia in other chronic diseases classified elsewhere; D75.839 Thrombocytosis, unspecified; L03.116 Cellulitis of left lower limb; E86.1 Hypovolemia; L97.829 Non-pressure chronic ulcer of other part of left lower leg with unspecified severity; L97.819 Non-pressure chronic ulcer of other part of right lower leg with unspecified severity; D50.9 Iron deficiency anemia, unspecified; Z87.891 Personal history of nicotine dependence
CPT/HCPCS: 36415; 80048-TC; 80053-TC; 80076-TC; 80202-TC; 83605-TC; 83690-TC; 83735-TC; 84100-TC; 84155; 84165; 85025-TC; 85730-TC; 87040-TC; 87081-TC; 93970-TC; 97116-TC; 97530-TC; A4217; A6253; A6403; C9803; G0378; J0696; J1650; J3370; J7030; J7050; J7060